=== PATIENT | male | born 1955 | race African-American/Black ===

== ENCOUNTER 2023-12-15 16:01 | Observation (INO) | payer OTHER ==
[2023-12-15 16:07] VITALS: BMI 21.9
[2023-12-15 18:48] LABS: BASO % 0.6 % (0-2.0); EOS % 1.3 % (0-4.5); HEMATOCRIT 33.8 % (35.4-49); HEMOGLOBIN 11.4 GM/dL (11.7-16.9); LYMPH % 31.7 % (8-40); MCH 32.4 pg (25.7-33.7); MCHC 33.6 g/dl (32.0-35.9); MEAN CELL VOLUME 96.3 fl (80-96); MONO % 8.8 % (3.8-10.2); NEUT % 57.6 % (42.8-82.8); PLATELET COUNT 204 10^3/uL (134-434); RBC 3.51 M/mm3 (4.00-5.60); RDW 13.3 % (11.9-15.9); WHITE BLOOD COUNT 6.6 K/mm3 (4.0-10.0)
[2023-12-15 19:09] LABS: POTASSIUM 4.3 mmol/L (3.5-5.1)
[2023-12-15 19:11] LABS: CALCIUM 9.1 mg/dL (8.5-10.1)
[2023-12-15 19:12] LABS: ALBUMIN 3.7 g/dl (3.4-5.0); BLOOD UREA NITROGEN 27.4 mg/dL (7-18); MAGNESIUM 2.2 mg/dL (1.8-2.4)
[2023-12-15 19:15] LABS: CREATININE 0.7 mg/dL (0.55-1.3)
[2023-12-15 19:17] LABS: BILIRUBIN,TOTAL 0.8 mg/dL (0.2-1); TOT PROT 7.1 g/dl (6.4-8.2)
[2023-12-15 20:06] LABS: HIV INTERPRETATION NEGATIVE (NEGATIVE)
[2023-12-15] MEDS ORDERED: LIDOCAINE 4% PATCH TP ONE (21:48)
[2023-12-15] MEDS ORDERED: ACETAMINOPHEN 325 MG TABLET (FP) ONE (21:48)
[2023-12-15] MEDS: ACETAMINOPHEN 325 MG TABLET (FP) PO ONE (21:52)
[2023-12-15] MEDS: LIDOCAINE 5% TOPICAL PATCH TP ONE (21:52)
[2023-12-15] MEDS: LIDOCAINE PATCH REMOVAL MC SCH (22:11)
[2023-12-16] MEDS ORDERED: ACETAMINOPHEN 325 MG TABLET (FP) PO PRN (04:46)
[2023-12-16 06:16] LABS: BASO % 0.5 % (0-2.0); EOS % 2.3 % (0-4.5); HEMATOCRIT 33.5 % (35.4-49); HEMOGLOBIN 11.2 GM/dL (11.7-16.9); LYMPH % 35.6 % (8-40); MCHC 33.4 g/dl (32.0-35.9); MEAN CELL VOLUME 95.8 fl (80-96); MEAN PLT VOLUME 8.9 fl (7.5-11.1); MONO % 8.1 % (3.8-10.2); NEUT % 53.5 % (42.8-82.8); PLATELET COUNT 201 10^3/uL (134-434); RBC 3.49 M/mm3 (4.00-5.60); RDW 13.2 % (11.9-15.9); WHITE BLOOD COUNT 5.2 K/mm3 (4.0-10.0)
[2023-12-16 06:38] LABS: CALCIUM 8.6 mg/dL (8.5-10.1)
[2023-12-16 06:42] LABS: CREATININE 0.6 mg/dL (0.55-1.3)
[2023-12-16] MEDS: INSULIN ASPART SLIDING SCALE (NOVOLOG) 1 VIAL SQ SCH (08:01)
[2023-12-16 09:15] LABS: URINE APPEARANCE CLEAR; URINE BILIRUBIN NEGATIVE (NEGATIVE); URINE COLOR YELLOW; URINE GLUCOSE (UA) 1+ (NEGATIVE); URINE KETONE NEGATIVE (NEGATIVE); URINE LEUK ESTERASE NEGATIVE (NEGATIVE); URINE NITRITE NEGATIVE (NEGATIVE); URINE PROTEIN TRACE (NEGATIVE); URINE UROBILINOGEN 0.2 mg/dL (0.2-1.0)
[2023-12-18] MEDS: POLYETHYLENE GLYCOL (HEALTHYLAX) 3350 17 GM PACKET PO ONE (11:53)
[2023-12-19 09:57] VITALS: RESP 18
[2023-12-19 14:13] VITALS: BP 155/72; PULSE 87; TEMP 98.5
== END 2023-12-19 15:50 | disposition home health service (06) ==
LOC: JER 16:01 → JERBED 20:48 → J5S 12-16 15:34
PROVIDERS: ADMIT Internal Medicine; ATTEND Family Medicine
CPT/HCPCS: 36415; 70450-TC; 71045-TC-FY; 80048; 80053; 81003; 82962; 83735; 84443; 85025; 87086; 87389; 93005; 93010; 97116-GP; 97161-GP; 99285-25; G0378